=== PATIENT | female | born 1965 | race Caucasian/White ===

== ENCOUNTER 2017-08-22 10:27 | Day surgery (SDC) | payer OTHER ==
[2017-08-17 13:02] VITALS: BMI 28.1
[~2017-08-22 10:27] MED LIST: CEFAZOLIN 2 GM in DEXTROSE 5%-WATER - 100 ML IVPB ONE; oxyCODONE HCL 10 MG SUSTAINED ACTING TABLET PO STA
--- NOTE | 2017-08-22 13:43 | HP ---
History & Physical Update - History History: No Change - Physical Physical: No Change - Assessment Assessment: No Change - Plan Plan: No Change
[2017-08-22] MEDS ORDERED: THROMBIN (BOVINE) 5,000 UNIT VIAL TP ONE (13:46)
[2017-08-22] MEDS ORDERED: LIDOCAINE 1%/EPI 1:100000 (20 ML MULTI DOSE VIAL) ONE (13:47)
[2017-08-22] MEDS ORDERED: MIDAZOLAM HCL 2 MG/2 ML SINGLE DOSE VIAL ONE (13:55)
[2017-08-22] MEDS ORDERED: PROPOFOL 20 ML ONE ×4 (14:08→15:30)
[2017-08-22] MEDS ORDERED: SODIUM CHLORIDE 0.9% P/F 10 ML VIAL IJ ONE (14:25)
[2017-08-22] MEDS ORDERED: GUM MASTIC/STORAX/MSAL/ALCOHOL 1 DRP DROPSBTL MC ONE (14:39)
[2017-08-22] MEDS ORDERED: BUPIVACAINE HCL/PF 2.5 MG/ML - 30 ML VIAL IJ ONE (14:39)
[2017-08-22] MEDS ORDERED: ONDANSETRON 4 MG/2 ML VIAL IVPUSH PRN ×2 (15:58→16:20)
[2017-08-22] MEDS ORDERED: oxyCODONE HCL 5 MG TABLET PO PRN (15:58)
[2017-08-22] MEDS ORDERED: LACTATED RINGERS SOLUTION 1,000 ML IV SCH ×2 (16:00→16:30)
--- NOTE | 2017-08-22 16:18 | OP ---
Operative Note - Note: Operative Date: 08/22/17 Pre-Operative Diagnosis: cervical stenosis Operation: anterior cervical fusion of C5-C6 Surgeon: John Deluna Proced Tech: Lauryn Sandy Anesthesiologist/COMPLIANCE REVIEWER: Mayela Barber Anesthesia: General Estimated Blood Loss (mls): 30 Fluid Volume Replaced (mls): 1,000 Operative Report Dictated: Yes
--- NOTE | 2017-08-22 16:19 | SURG ---
Surgery Finishing Area Supervisor Note Finishing Area Supervisor: Lauryn Sandy PA-C Date of Service: 08/22/17 Diagnosis: anterior cervical stenosis Procedure: anterior cervical fusion of C5-C6 I was present for the entirety of the operative procedure. For further detail, please refer to operative report. Visit type - Case Type Case Type: Scheduled Admission - Emergency Emergency Visit: No - New patient This patient is new to me today: Yes Date on this admission: 08/22/17
[2017-08-22] MEDS ORDERED: diazePAM 2 MG TABLET PO PRN (16:28)
[2017-08-22] MEDS ORDERED: ACETAMINOPHEN 325 MG TABLET (FP) PO ONE (17:00)
[2017-08-22] MEDS ORDERED: ACETAMINOPHEN 325 MG TABLET (FP) ONE (17:03)
[2017-08-22] MEDS: ACETAMINOPHEN 650 MG/20.3 ML ORAL SOLUTION (CUPS) PO SCH (21:02)
[2017-08-22] MEDS: CEFAZOLIN 1 GM/D5W 1 GM/50 ML BAG IVPB SCH (22:53)
[2017-08-23] MEDS: oxyCODONE HCL 5 MG TABLET PO PRN ×3 (03:08→13:42)
[2017-08-23] MEDS: ACETAMINOPHEN 650 MG/20.3 ML ORAL SOLUTION (CUPS) PO SCH ×2 (03:11→09:30)
[2017-08-23 06:07] VITALS: BP 126/74; PULSE 83; TEMP 98.8
[2017-08-23] MEDS: CEFAZOLIN 1 GM/D5W 1 GM/50 ML BAG IVPB SCH (06:25)
--- NOTE | 2017-08-23 07:26 | PN ---
Progress Note (short form) - Note Progress Note: Patient refused the Vicodin script as she said it makes her nauseous. I (KASANDRA Lorenzo/prescriber) called the patients pharmacy to verify the Vicodin Script was canceled --> it was. A new script for Percocet 5/325, 20 tablets. Take 1 tab every 6hrs prn was escribed successfully. <Darion Lorenzo P - Last Filed: 08/23/17 14:30> - Note Progress Note: Surgery POD #1 The patient was admitted to the Med-Surg Unit after ACDF C5-C8. The day of surgery, the patient ambulated the hallways with assistance. Narcotic and non-narcotic pain management control was achieved with an oral and IV approach. S/P ACDF. Patient seen and examined at bedside. Patient sates pain is controlled. left UE radiculopathy slightly worse from pre-op but controlled with pain meds. Mild paresthesias over left thumb and index finger same as pre- op. She denies any c/p, SOB, N/v, Fever, chills, h/a or new symptoms. She is voiding spontaneously but has not moved her bowels yet. Vital Signs Temp 98.8 F 08/23/17 06:04 Pulse 83 08/23/17 06:04 Resp 18 08/23/17 06:04 BP 126/74 08/23/17 06:04 Pulse Ox 99 08/22/17 17:00 Intake & Output 08/22/17 08/22/17 08/23/17 11:59 23:59 11:59 Intake Total 1350 Output Total 0 Balance 1350 Weight 180 lb Intake: IV 1350 Output: Urine 0 Other: Voiding Method Toilet Toilet Height 5 ft 7 in Body Mass Index (BMI) 28.1 Weight Measurement Method Stated by Patient PE A&Ox3, NAD Unlabored resp on RA Incision c/D/I with no evidence of tracking erythema or edema. No fluctuance or d/c. Steris in tact. Rederessed with 4x4 and op site upper extremities with 5/5 strength throughout and sensation to light touch intact throughout. B/L LE compartments soft. supple an non-tender to palpation with + pedal pulses. An xray was obtained and confirmed hardware placement at C5-C8 levels, no fractures or dislocations. Alysia-operative IV ABX were administered. DVT prophylaxis was achieved with SCDs and early ambulation. The patient ambulated with Physical Therapy and no services were recommended upon discharge. Narcotic scripts and or muscle relaxants were checked with [facility] NURSE prior to escibe. The discharge instructions and an oral pain management plan were reviewed with the patient. All questions answered. Above plan discussed with Dr. Deluna and agreed. <Malini Jerome - Last Filed: 08/23/17 16:33> - Note Progress Note: Patient seen and examined Agree with above <John Deluna - Last Filed: 08/25/17 10:51>
--- NOTE | 2017-08-23 08:11 | PN ---
Progress Note (short form) - Note Progress Note: 52 yo female. POD #1. Doing well. Tolerating clears. Pain adequately controlled. Encouraged IS and ambulation.
--- NOTE | 2017-08-24 08:49 | OP ---
DATE OF OPERATION: 08/22/2017 PREOPERATIVE DIAGNOSIS: Spinal stenosis, C5-6. POSTOPERATIVE DIAGNOSIS: Spinal stenosis, C5-6. PROCEDURE PERFORMED: 1. Anterior cervical diskectomy and fusion, C5-6. 2. Placement of instrumentation. SURGEON: John Deluna MD FUNERAL ARRANGEMENT DIRECTOR: KASANDRA Lynne ESTIMATED BLOOD LOSS: 50 mL INTRAVENOUS FLUIDS: Per Anesthesia. ANESTHESIA: General. COMPLICATIONS: None. DISPOSITION: Patient brought to the PACU in stable condition. INDICATIONS FOR SURGERY: The patient is a 52-year-old female who has been suffering from pain from her neck down her arm. X-rays and MRI were completed, which noted that she had a herniated disk at C5-6 with pain down her arm. She had gone through an exhaustive course of treatment for this for which included medications, physical therapy, as well as injections. Unfortunately, her pain continued to persist despite all this. At this point, risks, benefits, and alternatives were discussed, and the patient consented to surgery. DESCRIPTION OF PROCEDURE: Patient is brought to the operating room by anesthesia staff. After appropriate patient identification was performed, general anesthesia was administered. Appropriate anesthetic lines were placed. SCDs were placed on the patient. She was placed supine on the OR table with all areas of bony prominences well padded at this time. A needle was taped onto her neck to maryjo off the C5-6 level. An x-ray was taken to confirm this was correct. Needle was removed, and 10 mL of lidocaine with epinephrine were injected into her neck at this time. Her neck was prepped and draped in a sterile manner. At this point, timeout was completed. An incision was made on the left side of her neck. Dissection was carried down to the platysma. The platysma was cut in line with the skin incision. Next, the interval between the sternocleidomastoid as well as strap muscles was developed. Next, the interval between the carotid sheath and tracheoesophagus was developed. Peanuts were used to elevate it off the prevertebral fascia. A needle was placed into the C6-C7 disk. An x-ray was taken to confirm this was correct. Needle was removed, and the microscope was brought in. The longus coli muscle was elevated off. Retractor blade was placed in. A Ideal pin was placed into the body of C5 and C6. A knife was used to incised, and distraction was applied. At this point, using a series of pituitaries, Kerrisons, and curettes, a diskectomy was completed. The endplates were decorticated at this time. A cage filled with bone graft was placed in. Distraction was let go. A screw was placed in the body of C5. A screw was placed in the body of C6. Final tightening was performed. AP and lateral x-rays confirmed the instrumentation to be in good position. The platysma was closed with 2-0 Vicryl suture. Skin was closed with 3-0 Monocryl suture. Dermabond was applied. Steri-Strips were applied. A sterile dressing was applied. Patient was placed supine on the bed, extubated in the OR, and brought to the PACU in stable condition. Sunitha HURTADO/[id number]
--- NOTE | 2017-08-25 15:59 | PATH ---
Surgical Pathology Report Patient Name: RAYMOND OROZCO Med. Rec. #: [id number] /Age/Gender: 1965 (Age: 52) / F Account: [id number] Location: [facility] AM[facility] Taken: 08/22/2017 Received: 08/22/2017 Reported: 08/25/2017 Physicians: John Deluna M.D. Specimen(s) Received C 5-6 DISC Clinical History Cervical stenosis Final Diagnosis DISC C5-6, EXCISION: CARTILAGE WITH DEGENERATIVE CHANGES. Electronically Signed Malini Humphrey M.D. Gross Description Received in formalin labeled "C5-6 disc," is a 2.0 x 1.7 x 0.3 cm aggregate of vogel fragments of fibrocartilaginous tissue. The specimen is entirely submitted in one cassette. 08/23/201708/23/2017
== END 2017-08-23 13:48 | disposition home or self-care (01) ==
LOC: FASU 10:27 → FM/S 17:26 → FASU 08-23 13:48
PROVIDERS: ATTEND Orthopaedic Surgery Orthopaedic Surgery of the Spine
PROC: 0RG10A0 Fusion of Cervical Vertebral Joint with Interbody Fusion Device, Anterior Approach, Anterior Column, Open Approach (ICD-10-PCS; 2017-08-22)
PROC: 0RG10K0 Fusion of Cervical Vertebral Joint with Nonautologous Tissue Substitute, Anterior Approach, Anterior Column, Open Approach (ICD-10-PCS; 2017-08-22)
PROC: 0RB30ZZ Excision of Cervical Vertebral Disc, Open Approach (ICD-10-PCS; principal; 2017-08-22 14:47)
DX: M48.02 Spinal stenosis, cervical region (principal)
CPT/HCPCS: 72050-TC; 84703; 88304-TC; 94760; 97116-GP; 97161-GP